=== PATIENT | female | born 1995 | race Hispanic/Latino ===

== ENCOUNTER 2024-05-12 07:45 | Outpatient (CLI) | payer OTHER | END 2024-05-12 07:46 | disposition home or self-care (01) | LOC: BICRAD 07:45 | PROVIDERS: ATTEND Family Medicine | DX: J45.909 Unspecified asthma, uncomplicated (principal); I10 Essential (primary) hypertension; Z87.39 Personal history of other diseases of the musculoskeletal system and connective tissue; R19.01 Right upper quadrant abdominal swelling, mass and lump | CPT/HCPCS: 71046; 72100 ==